=== PATIENT | female | born 1960 | race Two or more races ===

== ENCOUNTER 2017-02-15 12:01 | Inpatient (IN) | payer OTHER ==
[2017-02-12 09:34] VITALS: BMI 29.2
[~2017-02-15 12:01] MED LIST: VANCOMYCIN 1,000 MG VIAL (RESTRICTED TO ID ONLY) IVPB ONE; ceFAZolin SODIUM 1 GM VIAL IVPB ONE
[2017-02-15] MEDS ORDERED: DESFLURANE GAS 240 ML BOTTLE IH ONE (19:55)
[2017-02-15] MEDS ORDERED: DEXAMETHASONE SOD PHOSPHATE 4 MG/1 ML VIAL ONE ×4 (20:04→20:30)
[2017-02-15] MEDS ORDERED: PROPOFOL 20 ML ONE ×8 (20:04)
[2017-02-15] MEDS ORDERED: fentaNYL CITRATE 250 MCG/5 ML VIAL ONE (20:04)
[2017-02-15] MEDS ORDERED: MIDAZOLAM HCL 2 MG/2 ML SINGLE DOSE VIAL ONE (20:25)
[2017-02-15] MEDS ORDERED: VANCOMYCIN 1,000 MG VIAL (RESTRICTED TO ID ONLY) ONE (20:53)
[2017-02-15] MEDS ORDERED: ceFAZolin SODIUM 1 GM VIAL IVPB ONE (20:57)
[2017-02-15] MEDS ORDERED: VANCOMYCIN 1,000 MG VIAL (RESTRICTED TO ID ONLY) IVPB ONE (21:04)
[2017-02-15] MEDS ORDERED: HYDROmorphone HCL/PF 1 MG/ML VIAL (FOR PYXIS CHARGING ONLY) ONE (21:07)
[2017-02-15] MEDS ORDERED: ROCURONIUM BROMIDE 50 MG/5 ML VIAL ONE (21:24)
[2017-02-15] MEDS ORDERED: ACETAMINOPHEN INJECTION 100 ML IVPB ONE (21:28)
[2017-02-15] MEDS ORDERED: THROMBIN (BOVINE) 5,000 UNIT VIAL TP ONE (21:30)
[2017-02-15] MEDS ORDERED: ONDANSETRON 4 MG/2 ML VIAL ONE ×2 (22:42→22:43)
--- NOTE | 2017-02-15 23:05 | OP ---
Operative Note - Note: Operative Date: 02/15/17 Pre-Operative Diagnosis: 1. C4-C5 disc herniation. 2. C4-C5 kyphosis Operation: C4-C5 anterior cervical diskectomy & fusion (ACDF) Post-Operative Diagnosis: Same as Pre-op Surgeon: Iban Pelaez Cupola Tender Helper: Rad Pelaez Anesthesiologist/VARNISHER PLASTICOATER: Terrell Weaver Anesthesia: General Specimens Removed: C4-C5 disk Estimated Blood Loss (mls): 100 Operative Report Dictated: Yes
[2017-02-15] MEDS ORDERED: ONDANSETRON 4 MG/2 ML VIAL IVPUSH PRN (23:07)
[2017-02-15] MEDS ORDERED: KETOROLAC TROMETHAMINE 30 MG/1 ML VIAL IVPUSH PRN (23:07)
[2017-02-15] MEDS ORDERED: oxyCODONE HCL 5 MG TABLET PO PRN (23:07)
[2017-02-15] MEDS ORDERED: morphine SULFATE 4 MG/ML VIAL IVPUSH PRN (23:07)
--- NOTE | 2017-02-15 23:07 | PN ---
Progress Note (short form) - Note Progress Note: 56F s/p C4-C5 ACDF POD #0. -Pain control. -Rea-op Abx x 24 hrs post-op. -Mechanical DVT PPx. -Incentive spirometry. -PT/OT/Rehab, OOB. -WBAT B/L UE & LE. -Clear liquid diet; advance as tolerated. -Admit to ICU overnight for airway observation. -Admit to medicine hospitalist service. -Discharge planning.
[2017-02-15] MEDS ORDERED: LACTATED RINGERS SOLUTION 1,000 ML IV SCH (23:15)
[2017-02-15] MEDS ORDERED: PROMETHAZINE HCL 25 MG/1 ML VIAL IVPUSH PRN (23:21)
[2017-02-15] MEDS ORDERED: HYDROmorphone *PCA* 10MG/50ML DISP.SYRIN PCA SCH (23:30)
[2017-02-16] MEDS: LACTATED RINGERS SOLUTION 1,000 ML IV SCH (00:30)
[2017-02-16] MEDS: CEFAZOLIN 1 GM PUSH 1 GM/10 ML DISP.SYRIN IVPUSH SCH ×2 (03:34→12:11)
[2017-02-16] MEDS ORDERED: LEVOTHYROXINE NA 75 MCG TABLET (FP) ONE (06:05)
[2017-02-16] MEDS ORDERED: LEVOTHYROXINE NA 100 MCG TABLET (FP) ONE (06:05)
[2017-02-16] MEDS: LEVOTHYROXINE 75 MCG, LEVOTHYROXINE 100 MCG PO SCH (06:17)
[2017-02-16] MEDS ORDERED: PT OWN MED DRAWER 7, Y5N ONE (09:54)
[2017-02-16] MEDS ORDERED: MUPIROCIN 2% TOPICAL OINTMENT FOR DECOLONIZATION NS SCH (10:00)
[2017-02-16] MEDS ORDERED: LEVOTHYROXINE NA 175 MCG TABLET PO SCH (10:00)
--- NOTE | 2017-02-16 10:01 | HP ---
Admitting History and Physical - Primary Care Physician PCP: Dr. Pelaez (Orthopedics) - Admission Chief Complaint: Acute on chronic back pain History of Present Illness: Briefly, 56 yo F h/o hypothyrodism, C4-C5 disk herniation and kyphosis s/p C4- C5 diskectomy and fusion POD 1. 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 She endorses chronic neck pain with numbness and tingling in all extremities which was unrelieved by oxycodone , muscle relaxant, NSAID or steroid injection. Denies urinary or bowel symptoms , chest pain, shortness of breath, fever, chills, n/v, vision change. History Source: Patient Limitations to Obtaining History: No Limitations - Past Medical History Endocrine: Yes: Hypothyroidism - Past Surgical History Additional Past Surgical History: Breast implants, Stomach mass removal, varicose vein removal - Smoking History Smoking history: Never smoked Have you smoked in the past 12 months: No - Alcohol/Substance Use Hx Alcohol Use: Yes (SOCIALLY) Home Medications - Allergies Allergies/Adverse Reactions: Allergies Allergy/AdvReac Type Severity Reaction Status Date / Time No Known Drug Allergies Allergy Verified 02/12/17 09:38 - Home Medications Home Medications: Ambulatory Orders Cholecalciferol (Vitamin D3) [Vitamin D3] 2,000 unit PO DAILY 02/12/17 Levothyroxine [Synthroid -] 175 mcg PO DAILY 02/12/17 Review of Systems - Review of Systems Constitutional: denies: Chills, Fever, Unintentional Wgt. Loss Eyes: reports: No Symptoms HENT: reports: No Symptoms Neck: reports: Decreased ROM, Lumps, Pain on Movement, Tenderness Cardiovascular: denies: Chest Pain Respiratory: denies: Cough, SOB Gastrointestinal: reports: Abdominal Pain Genitourinary: reports: No Symptoms Breasts: reports: No Symptoms Reported Integumentary: reports: No Symptoms Neurological: reports: No Symptoms Endocrine: reports: No Symptoms Physical Examination Vital Signs: Vital Signs Temperature 98.4 F 02/16/17 06:00 Pulse Rate 76 02/16/17 06:00 Respiratory Rate 18 02/16/17 06:00 Blood Pressure 125/87 02/16/17 06:00 O2 Sat by Pulse Oximetry (%) 100 02/16/17 00:30 Constitutional: Yes: Well Nourished, Calm, Other (in moderate pain) Eyes: Yes: Conjunctiva Clear, PERRL. No: Sclera Icterus HENT: Yes: Atraumatic, Normocephalic Neck: Yes: Decreased ROM, Tenderness, Other (C-collar in place) Cardiovascular: Yes: Regular Rate and Rhythm Respiratory: Yes: CTA Bilaterally Gastrointestinal: Yes: Normal Bowel Sounds, Distention (mild), Tenderness ( diffuse) ...Rectal Exam: Yes: Deferred Extremities: No: Calf Tenderness Edema: No Peripheral Pulses WNL: Yes Peripheral Pulses: Left Doralis Pedis: 2+, Right Dorsalis Pedis: 2+ Neurological: Yes: Alert, Oriented, Other (4/5 strength and sensatoin intact in all extremities) Assessment/Plan 56 yo F admitted to telemetry for observation s/p neck surgery. C4-C5 disk herniation - s/p anterior cervical diskectomy & fusion POD 1 - TRAVELING PHLEBOTOMIST for pain control * oxycodone, toradol and morphine for breakthrough pain * colace for opiate induced constipation - Received tony-op abx (ancef) - PT and OOB - Weight bearing as tolerated in all extremities per ortho Hypothyroidism - Cont. synthroid - f/u TSH FEN - LR 125cc/hr - Replete lytes PRN - Clear liquid, advance as tolerated Prophylaxis - DVT: SCDs - GI: not indicated Dispo - early childhood worker is setting up VNS - discharge planned for tomorrow if tolerated pain, diet and ambulation Sunil Eddy Medicine PGY2 Pager: [phone] Visit type - Emergency Visit Emergency Visit: No - New Patient This patient is new to me today: Yes Date on this admission: 02/16/17 - Critical Care Critical Care patient: No
[2017-02-16 10:49] LABS: BASOPHIL 0.2 % (0-2.0); EOSINOPHIL 0.1 % (0-4.5); MCH 29.4 pg (25.7-33.7); MCHC 33.8 g/dl (32.0-36.0); MEAN PLT VOLUME 8.7 fl (7.5-11.1); NEUTROPHILS 82.1 % (42.8-82.8); PLATELET COUNT 189 K/MM3 (134-434); RDW 13.3 % (11.6-15.6); WHITE BLOOD COUNT 8.6 K/mm3 (4.0-10.0)
--- NOTE | 2017-02-16 10:59 | PN ---
Progress Note (short form) - Note Progress Note: Pt is day 1 s/p ACDF surgery. VSS, labs nl, complains of minor pain which is well tolerated when she uses her dilaudid LEVEL VIAL GRINDER. No anesthetic complications, pt is doing well. Continue current care.
[2017-02-16 11:18] LABS: ALBUMIN 3.5 g/dl (3.4-5.0); ANION GAP 7 (8-16); BILIRUBIN,TOTAL 0.9 mg/dL (0.2-1.0); CALCIUM 8.2 mg/dL (8.5-10.1); CO2 27 mmol/L (21-32); CREATININE 0.6 mg/dL (0.55-1.02); GLUCOSE,RANDOM 106 mg/dL (74-106); SGOT/AST 20 U/L (15-37); SGPT/ALT 34 U/L (12-78); TOT PROT 6.9 g/dl (6.4-8.2)
[2017-02-16 11:27] LABS: ALK PHOS 68 U/L (45-117); THYROID STIMULATING HORMONE 0.32 uIU/ml (0.358-3.74)
[2017-02-16] MEDS: oxyCODONE HCL 5 MG TABLET PO PRN ×3 (12:08→22:03)
--- NOTE | 2017-02-16 20:30 | PN ---
Teaching Attending Note Name of Resident: Sunil Eddy ATTENDING PHYSICIAN STATEMENT I saw and evaluated the patient. I reviewed the resident's note and discussed the case with the resident. I agree with the resident's findings and plan as documented. SUBJECTIVE: Patient is 56 yo F h/o hypothyrodism, C4-C5 disk herniation and kyphosis s/p C4 -C5 diskectomy and fusion POD1. C/o having neck pain at the surgical site. OBJECTIVE: Vital Signs Temperature 97.8 F 02/16/17 18:00 Pulse Rate 86 02/16/17 18:00 Respiratory Rate 18 02/16/17 18:00 Blood Pressure 145/77 02/16/17 18:00 O2 Sat by Pulse Oximetry (%) 100 02/16/17 09:00 CBCD WBC 8.6 K/mm3 (4.0-10.0) 02/16/17 10:35 RBC 4.67 M/mm3 (3.60-5.2) 02/16/17 10:35 Hgb 13.7 GM/dL (10.7-15.3) 02/16/17 10:35 Hct 40.6 % (32.4-45.2) 02/16/17 10:35 MCV 87.0 fl (80-96) 02/16/17 10:35 MCHC 33.8 g/dl (32.0-36.0) 02/16/17 10:35 RDW 13.3 % (11.6-15.6) 02/16/17 10:35 Plt Count 189 K/MM3 (134-434) 02/16/17 10:35 MPV 8.7 fl (7.5-11.1) 02/16/17 10:35 CMP Sodium 139 mmol/L (136-145) 02/16/17 10:35 Potassium 4.2 mmol/L (3.5-5.1) 02/16/17 10:35 Chloride 105 mmol/L (98-107) 02/16/17 10:35 Carbon Dioxide 27 mmol/L (21-32) 02/16/17 10:35 Anion Gap 7 (8-16) L 02/16/17 10:35 BUN 12 mg/dL (7-18) 02/16/17 10:35 Creatinine 0.6 mg/dL (0.55-1.02) 02/16/17 10:35 Creat Clearance w eGFR > 60 (>60) 02/16/17 10:35 Random Glucose 106 mg/dL (74-106) 02/16/17 10:35 Calcium 8.2 mg/dL (8.5-10.1) L 02/16/17 10:35 Total Bilirubin 0.9 mg/dL (0.2-1.0) 02/16/17 10:35 AST 20 U/L (15-37) 02/16/17 10:35 ALT 34 U/L (12-78) 02/16/17 10:35 Alkaline Phosphatase 68 U/L (45-117) 02/16/17 10:35 Total Protein 6.9 g/dl (6.4-8.2) 02/16/17 10:35 Albumin 3.5 g/dl (3.4-5.0) 02/16/17 10:35 Current Medications Generic Name Dose Route Start Last Admin Trade Name Freq PRN Reason Stop Dose Admin Diphenhydramine HCl 12.5 mg 02/15/17 23:22 Benadryl Injection - IVPUSH ONCE PRN FOR ITCHING Docusate Sodium 300 mg 02/16/17 22:00 Colace - PO HS IDRIS Fentanyl 50 mcg 02/15/17 23:21 02/15/17 23:25 Sublimaze Injection - IVPUSH 50 mcg [id number] PRN Administration PAIN Hydromorphone HCl 0 mg 02/15/17 23:30 02/15/17 23:30 Dilaudid Table Games Shift Manager - INTERNET SALES ASSOCIATE 02/22/17 23:22 10 mg INTERNET SALES ASSOCIATE IDRIS Administration Protocol Lactated Ringer's 1,000 mls @ 125 mls/hr 02/15/17 23:30 02/16/17 00:30 Lactated Ringers Solution IV 125 mls/hr ASDIR IDRIS Administration Ketorolac Tromethamine 30 mg 02/15/17 23:07 Toradol Injection - IVPUSH 02/20/17 23:06 Q6H PRN PAIN Levothyroxine Sodium 75 mcg/ 175 mcg 02/16/17 07:00 02/16/17 06:17 Levothyroxine Sodium 100 mcg PO 175 mcg DAILY@0700 IDRIS Administration Morphine Sulfate 4 mg 02/15/17 23:07 Morphine Sulfate IVPUSH Q4H PRN PAIN Ondansetron HCl 4 mg 02/15/17 23:07 Zofran Injection IVPUSH Q6H PRN NAUSEA AND/OR VOMITING Oxycodone HCl 5 mg 02/15/17 23:07 Roxicodone - PO Q4H PRN PAIN Oxycodone HCl 10 mg 02/15/17 23:07 02/16/17 17:44 Roxicodone - PO 10 mg Q4H PRN Administration PAIN Promethazine HCl 12.5 mg 02/15/17 23:21 Phenergan Injection - IVPUSH Q6H PRN NAUSEA-FOR RESCUE AFTER 15 MIN Home Medications Medication Instructions Recorded Cholecalciferol (Vitamin D3) 2,000 unit PO DAILY 02/12/17 [Vitamin D3] Levothyroxine [Synthroid -] 175 mcg PO DAILY 02/12/17 PE: per resident's note ASSESSMENT AND PLAN: Patient is 56 yo F h/o hypothyrodism, C4-C5 disk herniation and kyphosis s/p C4 -C5 diskectomy and fusion POD1. # POD #1 for C4-C5 disk herniation, s/p anterior cervical diskectomy & fusion On INTERNET SALES ASSOCIATE for pain control, oxycodone, toradol and morphine for breakthrough pain , colace for opiate induced constipation Received tony-op abx (ancef), PT and OOB, Weight bearing as tolerated in all extremities per ortho # Hypothyroidism Cont. synthroid DVT: SCDs signal worker helper is setting up VNS, discharge planned for tomorrow if tolerated pain, diet and ambulation
[2017-02-16] MEDS ORDERED: CHLORHEXIDINE GLUCONATE 4% CLEANSER FOR DECOLONIZATION TP SCH (22:00)
[2017-02-16] MEDS ORDERED: DOCUSATE SODIUM 100 MG CAPSULE (FP) PO SCH (22:00)
[2017-02-17] MEDS: LACTATED RINGERS SOLUTION 1,000 ML IV SCH (03:00)
[2017-02-17] MEDS ORDERED: LEVOTHYROXINE NA 75 MCG TABLET (FP) ONE (06:03)
[2017-02-17] MEDS ORDERED: LEVOTHYROXINE NA 100 MCG TABLET (FP) ONE (06:03)
--- NOTE | 2017-02-17 06:03 | PN ---
Physical Exam: SUBJECTIVE: Patient seen and examined by me this AM - No major overnight events. Pain in R shoulder, pain w/ swallowing. On clears. No BM yet. Feeling well. Able to ambulate well - Contact anesthesia about d/c MANAGER FREELANCE, contact Dr. Freeman about post-op management plan - Patient ready for discharge today, w/ good ambulation, tolerating soft food, off MANAGER FREELANCE w/ minimal surgical pain (only with swallowing) and no other active medical issues. OBJECTIVE: Vital Signs Intake & Output 02/14/17 02/15/17 02/16/17 02/17/17 23:59 23:59 23:59 23:59 Intake Total 1550 2250 Output Total 260 300 Balance 1290 1950 Period Temp Pulse Resp BP Sys/Kramer Pulse Ox Last 24 Hr 97.7 F-98.3 F 72-94 18-18 138-148/77-96 95-100 GENERAL: The patient is awake, alert, and fully oriented, in no acute distress. HEAD: Normal with no signs of trauma. Wearing a C-collar. No erythema or drainage at surgical site. EYES: PERRL, extraocular movements intact, sclera anicteric, conjunctiva clear. No ptosis. ENT: Ears normal, nares patent, oropharynx clear without exudates, moist mucous membranes. NECK: Limited range of motion due to c-collar. Pain with neck rotation in R shoulder. LUNGS: Breath sounds equal, decreased at bases. No wheezes, no crackles, no accessory muscle use. HEART: Prominent S1 at RUSB. Regular rate and rhythm, S2 without murmur, rub or gallop. ABDOMEN: Soft, nontender, nondistended, normoactive bowel sounds, no guarding, no rebound, no hepatosplenomegaly, no masses. Upper EXTREMITIES: 2+ pulses, warm, well-perfused, no edema. Lower EXTREMITIES: 2+ pulses, warm, well-perfused, no edema. NEUROLOGICAL: Cranial nerves II through XII grossly intact. Normal speech, gait not observed. Strength 5/5 in all UE/LE muscle groups. Preserved sensation to light touch diffusely. PSYCH: Normal mood, normal affect. SKIN: Warm, dry, normal turgor, no rashes or lesions noted Laboratory Results - last 24 hr CBC, BMP 02/16/17 10:35 02/16/17 10:35 02/16/17 02/16/17 10:35 10:35 WBC 8.6 RBC 4.67 Hgb 13.7 Hct 40.6 MCV 87.0 MCH 29.4 MCHC 33.8 RDW 13.3 Plt Count 189 MPV 8.7 Neutrophils % 82.1 Lymphocytes % 10.2 Monocytes % 7.4 Eosinophils % 0.1 Basophils % 0.2 Sodium 139 Potassium 4.2 Chloride 105 Carbon Dioxide 27 Anion Gap 7 L BUN 12 Creatinine 0.6 Creat Clearance w eGFR > 60 Random Glucose 106 Calcium 8.2 L Total Bilirubin 0.9 AST 20 ALT 34 Alkaline Phosphatase 68 Total Protein 6.9 Albumin 3.5 TSH 0.32 L Active Medications Generic Name Dose Route Start Last Admin Trade Name Freq PRN Reason Stop Dose Admin Diphenhydramine HCl 12.5 mg 02/15/17 23:22 Benadryl Injection - IVPUSH ONCE PRN FOR ITCHING Docusate Sodium 300 mg 02/16/17 22:00 02/16/17 22:03 Colace - PO 300 mg HS [facility] Administration Fentanyl 50 mcg 02/15/17 23:21 02/15/17 23:25 Sublimaze Injection - IVPUSH 50 mcg [id number] PRN Administration PAIN Hydromorphone HCl 0 mg 02/15/17 23:30 02/15/17 23:30 Dilaudid Driver Starting Gate - MANAGER FREELANCE 02/22/17 23:22 10 mg MANAGER FREELANCE IDRIS Administration Protocol Lactated Ringer's 1,000 mls @ 125 mls/hr 02/15/17 23:30 02/17/17 03:00 Lactated Ringers Solution IV 125 mls/hr ASDIR IDRIS Administration Ketorolac Tromethamine 30 mg 02/15/17 23:07 Toradol Injection - IVPUSH 02/20/17 23:06 Q6H PRN PAIN Levothyroxine Sodium 75 mcg/ 175 mcg 02/16/17 07:00 02/16/17 06:17 Levothyroxine Sodium 100 mcg PO 175 mcg DAILY@0700 IDRIS Administration Morphine Sulfate 4 mg 02/15/17 23:07 Morphine Sulfate IVPUSH Q4H PRN PAIN Ondansetron HCl 4 mg 02/15/17 23:07 Zofran Injection IVPUSH Q6H PRN NAUSEA AND/OR VOMITING Oxycodone HCl 5 mg 02/15/17 23:07 Roxicodone - PO Q4H PRN PAIN Oxycodone HCl 10 mg 02/15/17 23:07 02/16/17 22:03 Roxicodone - PO 10 mg Q4H PRN Administration PAIN Promethazine HCl 12.5 mg 02/15/17 23:21 Phenergan Injection - IVPUSH Q6H PRN NAUSEA-FOR RESCUE AFTER 15 MIN No micro C-spine XR 02/16 - Read pending. ASSESSMENT/PLAN: Pt is a 56 yo woman w/ pmh of hypothyrodism, C4-C5 disc herniation and kyphosis s/p C4-C5 discectomy and fusion, now POD2 doing well. Patient w/ minimal pain, able to ambulate well, tolerating soft foods, no longer requiring MANAGER FREELANCE for pain control. She is medically cleared for discharge and cleared by Dr. Pelaez for follow-up in clinic in one week for further management of care. #POD2 C4-C5 discectomy and fusion for C4-C5 disk herniation -Post-op management per surgical team - Minimal pain in R shoulder. Normal post-op pain per Dr. Pelaez - Pain control with percocet PO per Dr. Freeman - Tolerating swallowing with soft foods. - Ambulating well with PT - passing flatus, but no BM yet. Colace rx on d/c - Diet/activity/wound care per discharge instructions, as specified by surgical team - F/u in one week in clinic w/ Dr. Pelaez #Hypothyroidism - TSH 0.32 - Continue home synthroid - F/u with PCP in one week -Discharge orders have been submitted. Family at bedside. Pt transportation arranged and ready to leave tonight. Dispo: Cleared for discharge by surgical team w/ f/u as outpt in one week. Medically cleared for discharge. Plan discussed with attending, Dr. Thaddeus Devlin Visit type - Emergency Visit Emergency Visit: No - New Patient This patient is new to me today: No - Critical Care Critical Care patient: No
[2017-02-17] MEDS: oxyCODONE HCL 5 MG TABLET PO PRN ×2 (06:09→15:02)
[2017-02-17] MEDS: LEVOTHYROXINE 75 MCG, LEVOTHYROXINE 100 MCG PO SCH (06:09)
[2017-02-17 12:48] LABS: MCH 29.3 pg (25.7-33.7); MEAN CELL VOLUME 86.1 fl (80-96); MEAN PLT VOLUME 8.7 fl (7.5-11.1); PLATELET COUNT 172 K/MM3 (134-434); RDW 13.1 % (11.6-15.6); WHITE BLOOD COUNT 8.8 K/mm3 (4.0-10.0)
--- NOTE | 2017-02-17 13:55 | PATH ---
Surgical Pathology Report Patient Name: JOSÉ MIGUEL MATSON [facility]. Rec. #: [id number] /Age/Gender: 1960 (Age: 56) / F Account: [id number] Location: 4 W TELEMETRY U Taken: 02/15/2017 Received: 02/16/2017 Reported: 02/17/2017 Physicians: Iban Pelaez M.D. Specimen(s) Received DISC C4-C5 Clinical History Cervical disc disorder Final Diagnosis INTERVERTEBRAL DISC, C4-5, PARTIAL EXCISION: PORTION OF INTERVERTEBRAL DISC. Electronically Signed Cj Costa M.D. Gross Description Received in formalin labeled "C4-C5 disc," is a 3.3 x 2.5 x 0.4 cm aggregate of navarro fragments of fibrocartilaginous tissue. A pharmaceutical representative portion is submitted in one cassette. 02/16/201702/16/2017
--- NOTE | 2017-02-17 15:12 | PN ---
Teaching Attending Note Name of Resident: Jerry Devlin ATTENDING PHYSICIAN STATEMENT I saw and evaluated the patient. I reviewed the resident's note and discussed the case with the resident. I agree with the resident's findings and plan as documented. SUBJECTIVE: no fever or chills, pain is well controlled on current regimen. EVENT ORGANIZER was dc this am OBJECTIVE: NAD , aaox3 CV: RRR Lungs: CTAB Abd: soft, NT, ND , NL BS Ext: no edema Neuro: strength 5/5 in upper and lower extremities proximally and distally . sensation tolight touch NL in all extremities. reflexes 2+ knee jerk and biceps b/l ASSESSMENT AND PLAN: 56 y/o lady with h/o chronic neck pain, who was admitted for C4-5 diskectomy . 1- S/P C4-5 Diskectomy, POD 1. - cont oxycodone - off EVENT ORGANIZER - bowel regimen - PT 2- hypothyroidism : low TSH , to be repeated as out pt . dispo : if tolerates po pain meds, can dc home today if OK with Sx
[2017-02-17 19:17] VITALS: BP 142/89; PULSE 90; TEMP 98.2
[2017-02-17] MEDS ORDERED: PT OWN MED DRAWER 7, Y5N ONE (20:04)
--- NOTE | 2017-02-17 22:49 | DS ---
Physical Exam: SUBJECTIVE: Patient seen and examined by me this AM - No major overnight events. Pain in R shoulder, pain w/ swallowing. On clears. No BM yet. Feeling well. Able to ambulate well - Contact anesthesia about d/c SUBSTANCE ABUSE SERVICES DIRECTOR, contact Dr. Freeman about post-op management plan - Patient ready for discharge today, w/ good ambulation, tolerating soft food, off SUBSTANCE ABUSE SERVICES DIRECTOR w/ minimal surgical pain (only with swallowing) and no other active medical issues. OBJECTIVE: Vital Signs Intake & Output 02/14/17 02/15/17 02/16/17 02/17/17 23:59 23:59 23:59 23:59 Intake Total 1550 2250 Output Total 260 300 Balance 1290 1950 Period Temp Pulse Resp BP Sys/Kramer Pulse Ox Last 24 Hr 98.2 F-99.1 F 78-94 18-20 135-148/84-92 96 PHYSICAL EXAM GENERAL: The patient is awake, alert, and fully oriented, in no acute distress. HEAD: Normal with no signs of trauma. Wearing a C-collar. No erythema or drainage at surgical site. EYES: PERRL, extraocular movements intact, sclera anicteric, conjunctiva clear. No ptosis. ENT: Ears normal, nares patent, oropharynx clear without exudates, moist mucous membranes. NECK: Limited range of motion due to c-collar. Pain with neck rotation in R shoulder. LUNGS: Breath sounds equal, decreased at bases. No wheezes, no crackles, no accessory muscle use. HEART: Prominent S1 at RUSB. Regular rate and rhythm, S2 without murmur, rub or gallop. ABDOMEN: Soft, nontender, nondistended, normoactive bowel sounds, no guarding, no rebound, no hepatosplenomegaly, no masses. Upper EXTREMITIES: 2+ pulses, warm, well-perfused, no edema. Lower EXTREMITIES: 2+ pulses, warm, well-perfused, no edema. NEUROLOGICAL: Cranial nerves II through XII grossly intact. Normal speech, gait not observed. Strength 5/5 in all UE/LE muscle groups. Preserved sensation to light touch diffusely. PSYCH: Normal mood, normal affect. SKIN: Warm, dry, normal turgor, no rashes or lesions noted LABS Laboratory Results - last 24 hr CBC, BMP 02/17/17 12:30 02/16/17 10:35 02/17/17 12:30 WBC 8.8 RBC 4.35 Hgb 12.7 Hct 37.4 MCV 86.1 MCH 29.3 MCHC 34.0 RDW 13.1 Plt Count 172 MPV 8.7 No micro Imaging: C-spine CXR 02/16 - Impression : Straightening. Anterior fusion C4-5 with disc space replacement. HOSPITAL COURSE: Date of Admission:02/15/17 Date of Discharge: 02/17/17 56 yo F h/o hypothyrodism, C4-C5 disk herniation and kyphosis s/p C4-C5 diskectomy and fusion on 02/15. Post-op course uncomplicated. Pt continued on home synthroid. Stable vitals, afebrile with no issues. C-spine XR with C4-C5 fusion w/ no gross deformity. Discharged on 02/17 w/ f/u as outpt in two weeks with Dr. Freeman in clinic. Pt counseled on appropriate post-op care. No consults Plan on discharge: 1- S/P C4-5 Diskectomy, POD 1. - cont oxycodone - off SUBSTANCE ABUSE SERVICES DIRECTOR - bowel regimen - PT 2- hypothyroidism : low TSH , to be repeated as out pt . Patient is stable and medically cleared for discharge. Will follow-up with Dr. Freeman in clinic as outpt in two weeks. Counseled on appropriate post-operative routine and wound care. Minutes to complete discharge: 35 Discharge Summary Reason For Visit: CERVICAL DISC DISORDER Condition: Stable - Instructions Diet, Activity, Other Instructions: You underwent C4-C5 anterior cervical diskectomy & fusion with Dr. Pelaez on 01/2017. Please continue taking your home medication as previously prescribed. Follow-ups: You are scheduled for a post-operative out-patient with Dr. Pelaez at his office for February 25. Please call his office to confirm this appointment. His contact information has been provided in this packet. Diet: Please eat soft foods for the next 2-3 days and advance your diet as tolerated. Please attempt to eat a high protein diet. Activity: Please refrain from any heavy lifting (no more than a carton of milk), excessive bending or twisting of the neck of back for the next 3-6 months. Please avoid taking any NSAID medications (advil, ibuprofen, etc...) for the next 3-6 months, as these medications impair the healing process. You may take tylenol for your pain if needed though. Wound care: Please refrain from any showers for the next week until you have seen Dr. Pelaez in clinic next week. Also, please do not change your dressing until you are seen in clinic next week. Any other questions, please call Dr. Pelaez at his office at the number provided. If you develop chest pain, trouble breathing, bleeding or discharge from the incision sites or any new symptoms please return to the hospital. You need repeat Blood work to check your thyroid function in 1 week . your synthroid dose might need to be changed Referrals: Iban Pelaez MD [Staff Physician] - Disposition: VNS/HOME HEALTH CARE - Home Medications Comprehensive Discharge Medication List: Ambulatory Orders Cholecalciferol (Vitamin D3) [Vitamin D3] 2,000 unit PO DAILY 02/12/17 Levothyroxine [Synthroid -] 175 mcg PO DAILY 02/12/17 Docusate Sodium [Colace -] 300 mg PO HS #30 capsule 02/17/17 Oxycodone HCl/Acetaminophen [Percocet 5-325 mg Tablet] 1 tab PO Q6H #16 tablet MDD 4 tab 02/17/17 This patient is new to me today: No Emergency Visit: No Critical Care patient: No - Discharge Referral Referred to [facility] Med P.C.: No
--- NOTE | 2017-02-18 00:51 | PN ---
Progress Note (short form) - Note Progress Note: Pt. seen & examined 02/17/2017 @ 3:30pm. 56F doing well s/p C4-C5 ACDF POD #2. Pain well controlled. No acute events overnight. Pt. denies overnight history of headaches/chest pain/shortness of breath/nausea/ vomiting/chills/sweats. (+) Void; (+) Flatus; (+) BM. Labs & vital signs reviewed. PE: AAO x 3, NAD. Anterior Nec: Dressing C/D/I. Rea-incisional soft tissue bed soft. No voice hoarseness. NVI B/L UE & LE. 56F doing well s/p C4-C5 ACDF POD #2. -Pain control. -Mechanical DVT PPx. -Incentive spirometry. -PT/OT/Rehab, OOB. -PWB B/L UE; no more than the weight of 1 pint of milk. -Care per primary medical team. -Discharge planning.
--- NOTE | 2017-02-18 10:41 | OP ---
DATE OF OPERATION: 02/15/2017 SURGEON: Iban Pelaez MD MACHINE MAINTENANCE SERVICER: Rad Pelaez MD PREOPERATIVE DIAGNOSIS: C4-5 disk prolapse with associated kyphosis and C5 radiculopathy. POSTOPERATIVE DIAGNOSIS: C4-5 disk prolapse with associated kyphosis and C5 radiculopathy. OPERATION PERFORMED: C4-5 anterior cervical diskectomy and fusion with cage. ANESTHESIA: General. ANTIBIOTICS GIVEN: Kefzol 2 g, vancomycin 1 g (this was given preoperatively). Decadron 4 mg was likewise given. DESCRIPTION OF PROCEDURE: With the patient in the supine position, the neck was extended. A bolster was placed behind the scapulae. This brought about easy access to the front of the neck, which was draped with the appropriate draping with Betadine scrub solution, wiped off with alcohol, DuraPrep applied. Imaging was available for intraoperative evaluation. An oblique incision was made in the lines of Elie. This opened up the space. The platysma was transected. The plane between the viscera and vessels was entered using visual palpation. A pin was placed in C4-5 and verified with lateral fluoroscopic x-ray for the correct level position. Once this had been ascertained, the mediolateral as well as [place] pins were applied. The soft tissues of the longus colli were resected off the bone. retractors were placed mediolaterally. Once this had been performed, the entire disk was resected using curettes as well as burs. This provided an easy access to the actual entire disk and the deep layers of the posterior longitudinal ligament. This was all resected, freeing the posterior longitudinal ligament completely. The was visualized. Complete hemostasis was achieved. At that point, a size 8 cage was inserted with the distractor. We could even put in a 9 but elected to put in an 8 because of the tension of the tissues. Solid fixation was achieved once ligamentotaxis had collapsed onto the cage and graft. A small patch was applied. Two screws were fixed into C4 and two screws into C5. Lateral AP fluoroscopic x-rays showed excellent position of implants. The wounds were thoroughly lavaged. Closure of platysma and subcutaneous 3-0 Vicryl, skin 3-0 Monocryl, Steri-Strips. A light collar applied. No complications. MD JARRETT Putnam/[id number]
== END 2017-02-17 18:46 | disposition home health service (06) | DRG 473 ==
LOC: JSAMEDAYSX 12:01 → EDSTATUS 13:30 → J4W 02-16 00:44
PROVIDERS: ADMIT Orthopaedic Surgery Orthopaedic Surgery of the Spine; ATTEND Internal Medicine
PROC: 0RG1070 Fusion of Cervical Vertebral Joint with Autologous Tissue Substitute, Anterior Approach, Anterior Column, Open Approach (ICD-10-PCS; 2017-02-15)
PROC: 0RT30ZZ Resection of Cervical Vertebral Disc, Open Approach (ICD-10-PCS; 2017-02-15)
PROC: 0RB30ZZ Excision of Cervical Vertebral Disc, Open Approach (ICD-10-PCS; principal; 2017-02-15 13:30)
DX: M50.121 Cervical disc disorder at C4-C5 level with radiculopathy (principal); M48.02 Spinal stenosis, cervical region; M40.202 Unspecified kyphosis, cervical region; E03.9 Hypothyroidism, unspecified
CPT/HCPCS: 36415; 72050-TC; 76000-TC; 80053; 84443; 85025; 85027; 86850; 86900; 86901; 88304-TC; 94010; 94760; 97116-GP; 97161-GP